=== PATIENT | female | born 1940 | race Caucasian/White ===

== ENCOUNTER → 2018-04-19 | Emergency (ER) | payer OTHER ==
[~2018-04-19] VITALS: Ht 152.4 cm; Wt 83.0 kg
--- NOTE | 2018-04-19 14:35 | NUR ---
BBRA FROM [facility] : SYNCOPE WHILE EATING, DENIES TRAUMA, NO FALL. PT AAOX3, VSS. DENIES CP, SOB, DIZZINESS, N/V, FRANOC NAD NOTED @ THIS TIME. FAMILY @ BS. WILL CONT TO MONITOR.
[2018-04-19 15:07] LABS: BASOPHILS # (AUTO) 0.1 /CMM (0.0-0.2); BASOPHILS % (AUTO) 0.6 % (0.0-2.0); EOSINOPHILS % (AUTO) 1.3 % (0.0-6.0); HEMATOCRIT 42 % (33-45); HEMOGLOBIN 13.6 g/dL (11.5-14.8); LYMPHOCYTES # (AUTO) 1.8 /CMM (0.8-4.8); LYMPHOCYTES % (AUTO) 17.2 % (20.0-44.0); MEAN CORPUSCULAR HEMOGLOBIN 30 PG (26.0-33.0); MEAN CORPUSCULAR HGB CONC 32 g/dl (31.0-36.0); MEAN CORPUSCULAR VOLUME 92 fL (82-100); MONOCYTES # (AUTO) 0.5 /CMM (0.1-1.30); MONOCYTES % (AUTO) 4.7 % (2.0-12.0); NEUTROPHILS # (AUTO) 8.1 /CMM (1.8-8.9); NEUTROPHILS % (AUTO) 76.2 % (43.0-81.0); PLATELET COUNT (AUTO) 241 /CMM (150-450); RDW COEFFICIENT OF VARIATION 12.9 (11.5-15.0); RED BLOOD CELL COUNT(AUTO) 4.58 MIL/uL (4.0-5.2); WHITE BLOOD COUNT (AUTO) 10.6 K/uL (4.3-11.0)
[2018-04-19 15:16] LABS: CALCIUM, SERUM 9.3 mg/dL (8.5-10.1); CARBON DIOXIDE 29 mmol/L (21-32); CHLORIDE 103 mmol/L (98-107); GLUCOSE 199 mg/dL (74-106); POTASSIUM 3.6 mmol/L (3.5-5.1); SODIUM SERUM 137 mmol/L (136-145); UREA NITROGEN, BLOOD 8 mg/dL (7-18)
[2018-04-19 15:19] LABS: INR 0.91 (0.85-1.15)
[2018-04-19 15:24] LABS: TROPONIN I < 0.017 ng/mL (0.00-0.056)
--- NOTE | 2018-04-19 16:04 | NUR ---
CALLED [facility] SPOKE WITH DILIP, EXPECTING A CALL BACK FROM [facility]
--- NOTE | 2018-04-19 16:14 | NUR ---
DR GAN FROM [facility] CALLED , ON THE PHONE WITH DR COATES.
[2018-04-19 17:05] VITALS: BP 119/62
--- NOTE | 2018-04-19 17:06 | NUR ---
PT AAOX3, SPEAKING FLUENTLY, VSS. DENIES CP, SOB, DIZZINESS, N/V, FRANCO, ARM/JAW PAIN, NAD NOTED @ THIS TIME. FAMILY @ BS.
--- NOTE | 2018-04-19 17:08 | NUR ---
GILBERTO FROM [facility] CALLED PT WILL BE TRANSFERED TO [facility] ER ACCEPTED BY DR MONTEIRO NUMBER TO GIVE REPORT ALS ETA 1800
== END ==
LOC: ER 14:26
DX: R55 Syncope and collapse (principal); F03.90 Unspecified dementia, unspecified severity, without behavioral disturbance, psychotic disturbance, mood disturbance, and anxiety; E03.9 Hypothyroidism, unspecified; E78.00 Pure hypercholesterolemia, unspecified
CPT/HCPCS: 36415; 70450-TC; 80048-TC; 82962-TC; 84484-TC; 85025-TC; 85730-TC; A4606; Z7610